=== PATIENT | female | born 1930 | race Caucasian/White ===

== ENCOUNTER 2018-09-17 17:17 | Inpatient (IN) | payer MEDICARE, BC ==
[2018-09-17] VITALS (7 sets, daily range): BP systolic 122–181; BP diastolic 34–66; PULSE 59–65; TEMP 97.6–97.9
[~2018-09-17] VITALS: Ht 154.9 cm; Wt 73.5 kg
[~2018-09-17 17:17] MED LIST: ARICEPT10 MG PO; ATIVAN 0.50.5 MG/TAB PO; BENADRYL25 M2 PO; BENAZEPRIL10 MG PO; BENAZEPRIL20 MG PO; BLOOD PRESSURE MED; CEPHALEXIN500 M1 PO; CLOBETASOL0.05% TP; CLOBETASOL0.051 TP; DEMEROL 50M50 MG/TAB PO; EPA/GLA1 SGL PO; FLUOCINOLONE AC TP; LEVAQUIN 5500 MG/TA1 PO; LOTENSIN20 MG PO; MACROBID 1100 MG/CAP PO; NEURONTIN300 MG/CAP PO; PERCOCET 325 MG1 TA2 PO; PYRIDIUM200 M1 PO; SEROQUEL XR50 MG PO; VANICREAM1 CRE TP; VERAPAMIL120 MG PO; VERELAN240 MG PO; [UNRECOGNIZED DRUG - REMARK]
[2018-09-17] MEDS ORDERED: AQUAPHOR HEALING41% TP (19:24)
[2018-09-17] MEDS ORDERED: BENADRYL25 M2 PO (19:25)
[2018-09-17] MEDS ORDERED: ZYRTEC 10MG10 MG PO (19:27)
[2018-09-17] MEDS ORDERED: NUPERCAINAL OIN30 GM RC (19:32)
[2018-09-17] MEDS ORDERED: ALLEGRA 180MG180 MG PO (19:33)
[2018-09-17] MEDS ORDERED: FLONASE NASAL S16 GM NS (19:34)
[2018-09-17] MEDS ORDERED: IMODIUM 2MG CAPS2 MG PO (19:36)
[2018-09-17] MEDS ORDERED: OCUVITE1 TA1 PO (19:37)
[2018-09-17] MEDS ORDERED: OCEAN NASAL SPR45 ML NS (19:38)
[2018-09-17] MEDS ORDERED: TYLENOL 325MG325 MG PO (19:39)
[2018-09-17 21:00] LABS: TSH w REFLEX 3.46 uIU/mL (0.465-4.680)
[2018-09-17 21:34] LABS: COLLECTION METHOD CLEAN CATCH
[2018-09-17 21:46] LABS: MUCOUS Present /lpf; PH 5 (5-8); SQUAMOUS EPITHELIAL 0-2 /hpf; URINE APPEARANCE Clear; URINE BACTERIA None Seen /hpf; URINE BILIRUBIN Negative (NEGATIVE); URINE BLOOD Negative (NEGATIVE); URINE COLOR Yellow; URINE GLUCOSE Negative (NEGATIVE); URINE KETONE Negative (NEGATIVE); URINE LEUKOCYTE ESTERASE Trace (NEGATIVE); URINE NITRATE Negative (NEGATIVE); URINE PROTEIN(semi-quant) Negative (NEGATIVE); URINE RBC 0-2 /hpf; URINE UROBILINOGEN Negative (NEGATIVE)
[2018-09-18] VITALS (16 sets, daily range): BP systolic 112–172; BP diastolic 39–56; PULSE 58–76; TEMP 97.2–98.2
[2018-09-18 05:32] LABS: BASO % 0.5 % (0.0-2.0); GRAN # 7.1 (1.4-6.5); GRAN % 88.6 % (42.2-75.2); HEMOGLOBIN 10.3 g/dl (12.5-16.0); LYMPH # 0.8 (1.2-3.4); LYMPH % 9.5 % (20.0-51.0); MEAN CELL VOLUME 92 fl (80.0-100.0); MEAN CORPUSCULAR HEMOGLOBIN 30 pg (27.0-31.0); MEAN CORPUSCULAR HGB CONC 32 g/dl (33.0-37.0); MEAN PLATELET VOLUME 14.2 fl (7.4-10.4); MONO # 0.1 (0.1-0.6); MONO % 0.8 % (1.7-9.3); RED BLOOD COUNT 3.47 M/mm3 (4.10-5.30); REDCELL DISTRIBUTION WIDTH-CV 14.2 % (11.5-14.5)
[2018-09-18 05:33] LABS: PROTHROMBIN TIME 11.7 SECONDS (9.7-12.8)
[2018-09-18 05:37] LABS: HEMATOCRIT 31.8 % (37.0-47.0)
[2018-09-18 05:38] LABS: PLATELET COUNT 6 K/mm3 (130-400)
[2018-09-18 05:48] LABS: BILIRUBIN,TOTAL 0.3 mg/dL (0.0-1.0); CALCIUM 9.2 mg/dL (8.4-10.2); CREATININE, serum 0.97 mg/dL (0.52-1.25); POTASSIUM 4.7 mmol/L (3.4-5.0); TOTAL PROTEIN 6.9 gm/dL (6.4-8.2)
[2018-09-19] VITALS (7 sets, daily range): BP systolic 112–157; BP diastolic 43–54; PULSE 52–66; TEMP 97.4–98
[2018-09-19 05:51] LABS: BASO % 0.1 % (0.0-2.0); GRAN # 12.3 (1.4-6.5); GRAN % 89.8 % (42.2-75.2); MEAN CELL VOLUME 93 fl (80.0-100.0); MEAN CORPUSCULAR HGB CONC 32 g/dl (33.0-37.0); MONO # 0.3 (0.1-0.6); MONO % 2.2 % (1.7-9.3); RED BLOOD COUNT 3.17 M/mm3 (4.10-5.30); REDCELL DISTRIBUTION WIDTH-CV 14.5 % (11.5-14.5)
[2018-09-19 05:52] LABS: HEMATOCRIT 29.4 % (37.0-47.0); HEMOGLOBIN 9.3 g/dl (12.5-16.0); MEAN CORPUSCULAR HEMOGLOBIN 29 pg (27.0-31.0)
[2018-09-19 05:53] LABS: PLATELET COUNT 14 K/mm3 (130-400)
[2018-09-19 06:03] LABS: CALCIUM 9.2 mg/dL (8.4-10.2); CREATININE, serum 0.97 mg/dL (0.52-1.25); POTASSIUM 4.7 mmol/L (3.4-5.0)
[2018-09-20 03:46] VITALS: BP 109/42; PULSE 51; TEMP 97.7
[2018-09-20 07:01] LABS: BASO % 0.1 % (0.0-2.0); GRAN # 11.8 (1.4-6.5); GRAN % 89.8 % (42.2-75.2); LYMPH # 0.9 (1.2-3.4); LYMPH % 6.5 % (20.0-51.0); MEAN CELL VOLUME 93 fl (80.0-100.0); MEAN CORPUSCULAR HGB CONC 32 g/dl (33.0-37.0); MONO # 0.3 (0.1-0.6); MONO % 2.4 % (1.7-9.3); RED BLOOD COUNT 3.06 M/mm3 (4.10-5.30); REDCELL DISTRIBUTION WIDTH-CV 14.6 % (11.5-14.5)
[2018-09-20 07:14] LABS: HEMATOCRIT 28.5 % (37.0-47.0); HEMOGLOBIN 9.2 g/dl (12.5-16.0); MEAN CORPUSCULAR HEMOGLOBIN 30 pg (27.0-31.0)
[2018-09-20 07:16] LABS: PLATELET COUNT 12 K/mm3 (130-400)
[2018-09-20 07:46] VITALS: BP 129/43; PULSE 53; TEMP 97
[2018-09-20 07:47] LABS: CALCIUM 8.8 mg/dL (8.4-10.2); CREATININE, serum 1.04 mg/dL (0.52-1.25); POTASSIUM 4.4 mmol/L (3.4-5.0)
[2018-09-20 11:38] VITALS: BP 144/44; PULSE 47; TEMP 97.5
[2018-09-20 15:33] VITALS: BP 145/47; PULSE 50; TEMP 98.6
[2018-09-20 20:05] VITALS: BP 170/62; PULSE 67; TEMP 97.6
[2018-09-21 04:26] VITALS: BP 141/51; PULSE 55; TEMP 97.6
[2018-09-21 06:56] LABS: BASO % 0.1 % (0.0-2.0); GRAN # 9.5 (1.4-6.5); GRAN % 86.2 % (42.2-75.2); LYMPH # 0.9 (1.2-3.4); LYMPH % 8.5 % (20.0-51.0); MEAN CELL VOLUME 92 fl (80.0-100.0); MEAN CORPUSCULAR HGB CONC 32 g/dl (33.0-37.0); MONO # 0.4 (0.1-0.6); MONO % 3.4 % (1.7-9.3); RED BLOOD COUNT 3.15 M/mm3 (4.10-5.30); REDCELL DISTRIBUTION WIDTH-CV 14.6 % (11.5-14.5)
[2018-09-21 07:06] LABS: HEMOGLOBIN 9.3 g/dl (12.5-16.0); MEAN CORPUSCULAR HEMOGLOBIN 30 pg (27.0-31.0); PLATELET COUNT 18 K/mm3 (130-400)
[2018-09-21 07:09] LABS: CALCIUM 8.6 mg/dL (8.4-10.2); CREATININE, serum 0.98 mg/dL (0.52-1.25); POTASSIUM 4.5 mmol/L (3.4-5.0)
[2018-09-21 07:40] VITALS: BP 148/52; PULSE 51; TEMP 97.4
[2018-09-21 09:15] VITALS: BP 138/39; PULSE 42
[2018-09-21 09:45] VITALS: BP 135/42; PULSE 47
[2018-09-21 10:15] VITALS: BP 153/47; PULSE 45
[2018-09-21 16:08] VITALS: BP 160/62; PULSE 25; TEMP 97.5
[2018-09-22 05:08] VITALS: BP 106/58; PULSE 62; TEMP 98.7
[2018-09-22 06:06] LABS: MEAN CELL VOLUME 92 fl (80.0-100.0); MEAN CORPUSCULAR HGB CONC 32 g/dl (33.0-37.0); MEAN PLATELET VOLUME 14.4 fl (7.4-10.4); PLATELET COUNT 56 K/mm3 (130-400); RED BLOOD COUNT 2.99 M/mm3 (4.10-5.30); REDCELL DISTRIBUTION WIDTH-CV 14.6 % (11.5-14.5)
[2018-09-22 06:07] LABS: HEMATOCRIT 27.6 % (37.0-47.0); HEMOGLOBIN 8.9 g/dl (12.5-16.0); MEAN CORPUSCULAR HEMOGLOBIN 30 pg (27.0-31.0)
[2018-09-22 06:21] LABS: CALCIUM 8.4 mg/dL (8.4-10.2); CREATININE, serum 0.95 mg/dL (0.52-1.25); POTASSIUM 4.5 mmol/L (3.4-5.0)
[2018-09-22 06:53] LABS: BAND 3 % (0-10); HYPOCHROMIA 1+; LYMPHOCYTE 10 % (20.0-51.0); METAMYELOCYTE 1 % (0-0); NEUTROPHILS 79 % (42.0-75.2); PLATELET ESTIMATE DECREASED (NORMAL)
[2018-09-22 07:48] VITALS: BP 154/72; PULSE 64; TEMP 97.8
[2018-09-22 11:24] VITALS: BP 171/75; PULSE 85; TEMP 97.5
[2018-09-22 15:33] VITALS: BP 149/74; PULSE 89; TEMP 97.5
[2018-09-22 15:43] VITALS: BP 149/74; PULSE 89; TEMP 97.5
== END 2018-09-22 16:00 | DRG 813 ==
LOC: SURG 17:17
PROVIDERS: Hospitalist; Nurse Practitioner Family; Physician Assistant; ADMIT Hospitalist
DX: D69.3 Immune thrombocytopenic purpura (principal); I10 Essential (primary) hypertension; G30.9 Alzheimer's disease, unspecified; F02.80 Dementia in other diseases classified elsewhere, unspecified severity, without behavioral disturbance, psychotic disturbance, mood disturbance, and anxiety; Z85.820 Personal history of malignant melanoma of skin; D53.9 Nutritional anemia, unspecified; E78.5 Hyperlipidemia, unspecified; Z88.6 Allergy status to analgesic agent; Z88.5 Allergy status to narcotic agent; Z88.0 Allergy status to penicillin; Z88.2 Allergy status to sulfonamides; Z88.8 Allergy status to other drugs, medicaments and biological substances; E04.9 Nontoxic goiter, unspecified; D72.829 Elevated white blood cell count, unspecified; R82.998 Other abnormal findings in urine
CPT/HCPCS: 99222-AI; 99231-AI; 99239; A4216; J0696; J1569; J2930; P9035

== ENCOUNTER → 2018-09-27 | Outpatient (CLI) | payer MEDICARE, BC ==
[~2018-09-27] MED LIST changes: +ALLEGRA 180MG180 MG PO; +AQUAPHOR HEALING41% TP; +FLONASE NASAL S16 GM NS; +IMODIUM 2MG CAPS2 MG PO; +NUPERCAINAL OIN30 GM RC; +OCEAN NASAL SPR45 ML NS; +OCUVITE1 TA1 PO; +TYLENOL 325MG325 MG PO; +ZYRTEC 10MG10 MG PO
[2018-09-27 13:10] LABS: BASO % 0.1 % (0.0-2.0); GRAN # 4.8 (1.4-6.5); GRAN % 65.4 % (42.2-75.2); HEMOGLOBIN 10.6 g/dl (12.5-16.0); LYMPH # 1.7 (1.2-3.4); LYMPH % 23.6 % (20.0-51.0); MEAN CELL VOLUME 94 fl (80.0-100.0); MEAN CORPUSCULAR HEMOGLOBIN 30 pg (27.0-31.0); MEAN CORPUSCULAR HGB CONC 32 g/dl (33.0-37.0); MONO # 0.8 (0.1-0.6); MONO % 10.2 % (1.7-9.3); PLATELET COUNT 83 K/mm3 (130-400); RED BLOOD COUNT 3.55 M/mm3 (4.10-5.30); REDCELL DISTRIBUTION WIDTH-CV 14.2 % (11.5-14.5)
[2018-09-27 13:11] LABS: HEMATOCRIT 33.4 % (37.0-47.0)
== END ==
LOC: COL.LAB 13:03 → ZCOL.LAB 13:03
PROVIDERS: Internal Medicine
DX: D69.3 Immune thrombocytopenic purpura (principal)

== ENCOUNTER 2018-10-16 11:20 | Emergency (ER) | payer MEDICARE, BC ==
[~2018-10-16] VITALS: Ht 154.9 cm; Wt 71.4 kg
[2018-10-16 12:18] LABS: ARTERIAL BLD GAS TCO2 CT 20.4; ARTERIAL BLOOD GAS BASE EXCESS -4.8 (-2-2); ARTERIAL BLOOD GAS HCO3 19.4 meq/L (22-26); ARTERIAL BLOOD GAS PCO2 33.1 mmHg (35-45); ARTERIAL BLOOD GAS PO2 75.4 mmHg (80-100); ARTERIAL BLOOD GAS pH 7.39 (7.35-7.45)
[2018-10-16 12:27] LABS: ALBUMIN 3.5 gm/dL (3.5-5.0); BILIRUBIN,TOTAL 0.4 mg/dL (0.0-1.0); CALCIUM 8.5 mg/dL (8.4-10.2); CREATININE, serum 1.27 mg/dL (0.52-1.25); POTASSIUM 4.3 mmol/L (3.4-5.0); TOTAL PROTEIN 6.2 gm/dL (6.4-8.2)
[2018-10-16 12:48] LABS: HEMATOCRIT 35.6 % (37.0-47.0); HEMOGLOBIN 11.4 g/dl (12.5-16.0); MEAN CELL VOLUME 92 fl (80.0-100.0); MEAN CORPUSCULAR HEMOGLOBIN 29 pg (27.0-31.0); MEAN CORPUSCULAR HGB CONC 32 g/dl (33.0-37.0); MEAN PLATELET VOLUME 13.7 fl (7.4-10.4); RED BLOOD COUNT 3.88 M/mm3 (4.10-5.30); REDCELL DISTRIBUTION WIDTH-CV 14.2 % (11.5-14.5)
[2018-10-16 12:50] LABS: PLATELET COUNT 21 K/mm3 (130-400)
[2018-10-16 13:12] LABS: BAND 13 % (0-10); HYPOCHROMIA 1+; LYMPHOCYTE 8 % (20.0-51.0); NEUTROPHILS 74 % (42.0-75.2); PLATELET ESTIMATE DECREASED (NORMAL)
[2018-10-16 13:51] LABS: COLLECTION METHOD CLEAN CATCH
[2018-10-16] MEDS ORDERED: AQUAPHOR OINTM396 GM TOP (13:56)
[2018-10-16 14:08] LABS: HYALINE CAST >12 /lpf; MUCOUS Present /lpf; PH 5 (5-8); URINE APPEARANCE Hazy; URINE BACTERIA None Seen /hpf; URINE BILIRUBIN Negative (NEGATIVE); URINE BLOOD Negative (NEGATIVE); URINE COLOR Amber; URINE GLUCOSE Negative (NEGATIVE); URINE KETONE Negative (NEGATIVE); URINE LEUKOCYTE ESTERASE Negative (NEGATIVE); URINE NITRATE Negative (NEGATIVE); URINE PROTEIN(semi-quant) 1+ (NEGATIVE); URINE RBC 0-2 /hpf; URINE UROBILINOGEN Negative (NEGATIVE)
[2018-10-16] MEDS ORDERED: FLONASE NASAL S16 GM NAS (14:32)
[2018-10-16] MEDS ORDERED: MILK OF MA400 MG/52 PO (14:37)
[2018-10-16] MEDS ORDERED: ALMACONE 360 M360 ML PO (14:38)
[2018-10-16] MEDS ORDERED: OCUVITE1 TA1 PO (14:39)
[2018-10-16] MEDS ORDERED: PREDNISONE20 MG PO (14:39)
[2018-10-16] MEDS ORDERED: TRIAMCINOLONE A15 G3 TOP (14:41)
[2018-10-16 15:13] VITALS: BP 119/54; PULSE 63; TEMP 97.4
== END 2018-10-16 15:12 | disposition home or self-care (01) ==
LOC: COL.ER 11:20
PROVIDERS: Family Medicine
DX: E86.0 Dehydration (principal); D69.6 Thrombocytopenia, unspecified
CPT/HCPCS: J7030

== ENCOUNTER → 2019-12-07 | Outpatient (CLI) | payer MEDICARE, BC ==
[~2019-12-07] MED LIST changes: +ALMACONE 360 M360 ML PO; +AQUAPHOR OINTM396 GM TOP; +FLONASE NASAL S16 GM NAS; +MILK OF MA400 MG/52 PO; +PREDNISONE20 MG PO; +TRIAMCINOLONE A15 G3 TOP
== END ==
LOC: ZCOL.LAB 17:52
DX: I10 Essential (primary) hypertension (principal)